=== PATIENT | female | born 1935 ===

== ENCOUNTER 2018-08-25 05:41 | Inpatient (IN) | payer MEDICARE, OTHER, SELFPAY ==
--- NOTE | 2018-08-25 | DI.RAD.S_ITS ---
PROCEDURE: XR CHEST 2V INDICATIONS: pneumonia TECHNIQUE: 2 views of the chest were acquired. COMPARISON: [facility], CR, XR CHEST 2VW, 07/16/2017, 12:11. FINDINGS: Surgical changes and devices: Multiple surgical clips are present over the left hemithorax. Lungs and pleura: Lung volumes are low. There are mild left basilar pulmonary radiopacities in atelectasis in the lower right lung. Mediastinum: Mediastinal contours are normal. Heart size is normal. Bones and chest wall: No suspicious bony abnormalities. Soft tissues appear unremarkable. IMPRESSION: Low lung volumes and probable left basilar atelectasis although aspiration/infection could also be considered in the differential. Short interval followup is recommended with resolution of the patient's symptoms to ensure there is no underlying pulmonary pathology. Dictated by: Rae Leger M.D. on 08/25/2018 at 10:59 Approved by: Rae Leger M.D. on 08/25/2018 at 11:01
--- NOTE | 2018-08-25 | DI.RAD.S_ITS ---
PROCEDURE: XR ABDOMEN MIN 2V INDICATIONS: SMALL BOWEL OBSTRUCTION TECHNIQUE: 2 views of the abdomen were acquired. COMPARISON: None. FINDINGS: Surgical changes and devices: Multiple surgical clips are present throughout the pelvis. Bowel: There are multiple differential air-fluid levels on the upright view. Dilated gas-filled loops of small bowel and nondilated gas-filled loops of colon are visualized at the pelvis. Soft tissues: No masses; visualized solid organ contours appear normal in size. No suspicious abdominal calcifications. Bones: No suspicious bony abnormalities. IMPRESSION: 1. Dilated, gas-filled small bowel and nondilated gas-filled colon suggesting a partial small bowel obstruction or early ileus. Dictated by: Rae Leger M.D. on 08/25/2018 at 11:01 Approved by: Rae Leger M.D. on 08/25/2018 at 11:02
--- NOTE | 2018-08-25 | DI.CT.S_ITS ---
PROCEDURE: CT ABDOMEN PELVIS W CON INDICATIONS: r/o bowel obstruction TECHNIQUE: After the administration of oral and intravenous contrast, 5 mm thick sections acquired from the diaphragms to the symphysis. 5 mm thick coronal and sagittal reformats were performed. For radiation dose reduction, the following was used: automated exposure control, adjustment of mA and/or kV according to patient size. COMPARISON: None. FINDINGS: Image quality: Excellent. ABDOMEN: Lung bases: Patchy consolidation in the lung bases bilaterally compatible atelectasis versus less likely pneumonia or aspiration. Heart size is normal. Atherosclerotic calcifications are noted in the visualized coronary vasculature. Solid organs: Liver is normal in size and enhancement. Gallbladder is within normal limits. Biliary system is non-dilated. Pancreas enhances normally. Spleen is normal in size and enhancement. No adrenal nodules. Kidneys are normal in size and enhancement. Patient is status post ileal conduit formation. There is bilateral pelvocaliectasis and ureterectasis related to the ileoconduit. No renal stones or renal masses identified. Peritoneum and bowel: Right lower quadrant paramedian hernia is noted which contains loops of small bowel. The herniated loops of small bowel have diffusely thickened wall and adjacent inflammatory changes highly suspicious for bowel strangulation. Dilated loops of small bowel are noted proximal to the herniated loops of small bowel compatible with small bowel obstruction. Loops of small bowel are dilated up to 3.2 cm. Transition zone is is at the right lower paramedian hernia. There is also a anthony-stromal hernia adjacent to the right lower quadrant ileal conduit which contains unremarkable appearing loops of small bowel and colon. Stomach and colon loops are normal in caliber and wall thickness. No free fluid or air. Nodes and vessels: No retroperitoneal or mesenteric adenopathy. Aorta and inferior vena cava are normal in caliber. Scattered atherosclerotic calcifications are noted in the abdominal and pelvic vasculature. Miscellaneous: Small supraumbilical ventral midline hernia is noted which contains an unremarkable appearing omental fat. PELVIS: Genitourinary: Bladder is surgically absent. Uterus is surgically absent. Miscellaneous: No inguinal hernias or adenopathy. Bones: No suspicious bony lesions. No vertebral body compression fractures. Spine degenerative disease and facet arthropathy noted. IMPRESSION: 1. Small bowel obstruction with transition point related to a right lower quadrant paramedian hernia which contains loops of small bowel. The herniated loops of small bowel demonstrate diffuse wall thickening and adjacent inflammatory changes highly concerning for bowel strangulation. 2. Status post right lower quadrant ileal conduit formation. There is a anthony-stromal hernia which contains unremarkable appearing loops of colon and small bowel. 3. Bilateral pelvocaliectasis and ureterectasis related to ileal conduit. 4. Status post cystectomy and hysterectomy. 5. Patchy consolidation in the lung bases which could represent atelectasis, aspiration or pneumonia. 6. Atherosclerosis including the visualized coronary vasculature. Dr. Kaia Diego of [facility] telephoned findings to [facility] charge nurse, Ashlyn, who will provide the results of the attending physician on 08/25/2018 at 1951 hrs. Dictated by: Gisselle Rogers MD, PhD on 08/25/2018 at 20:39 Approved by: Gisselle Rogers MD, PhD on 08/25/2018 at 20:52
[2018-08-25 06:11] VITALS: BMI 28.6
[2018-08-25 07:30] VITALS: BP 127/74; PULSE 107; RESP 20; TEMP 36.2; O2SAT 92
--- NOTE | 2018-08-25 07:40 | PC.NURSE ---
AM patient arrived at 0730 as a direct admit from [facility]. Report was never called from their team so I called [facility] and spoke to an ER wireless team member regarding pt. Patient arrived on stretcher and was slider to bed. Has a urostomy from previous bladder cancer. No temp. Denied pain. Only reports being tired.
--- NOTE | 2018-08-25 08:49 | CM.DANOTE ---
Discharge Planning/Care Management DCP: assessment: case received, EMR reviewed and met with pt. Introduced self and role. Pt is an 82 year old female who admitted to care of hospitalist team early this mornin. Dr. Martin will see her this morning. PCP: Dr. Elizabeth Zepeda: [facility] ( [facility]). Sees urologist: Dr. Moraima Mccall/[facility]. Payer: listed on face sheet as [employer] Medicare. Pt has all her insurance information and it appears from the cards she has that the [employer]etna is a [employer] supplement. [employer] is notified and has alerted [facility] to see pt today to get correct insurance info sorted out. Pt does live alone. Her sister Areli Mills is in [place]. She reports she has only her roman catholic family. She does say she is functionally independent in the community, uses no assistive device. She left without her trifocal glasses as it was an emergency. P: DCP team will follow as more is know to assist with any needs that may arise CM Discharge Assessment Start: 08/25/18 08:46 Freq: Status: Active Protocol: Document 08/25/18 08:47 ITV (Rec: 08/25/18 08:48 ITV [id number]) Discharge Planning Assessment History Provided By Patient Medical Record Has Patient been admitted in last 30 No days? Prior Living Arrangements House Household Members none Type of transporation used prior to Drives own vehicle admit Independent with ADL's Yes Is patient alert and oriented? Yes Whiteboard Updated in Patient Room with Yes name and ext. # of Final Dressing Cutter Review Status In Process Next Review Type Continued Stay Review
--- NOTE | 2018-08-25 10:32 | P.HP_ITS ---
History of Present Illness Date Patient Seen: 08/25/18 Time Patient Seen: 10:15 Chief complaint: Pneumonia, UTI Narrative: Patient is an 82 y/o female who was in her usual state of health until yesterday. She ate a sandwhich around 2pm. She noted her abdomen felt funny at 5pm. She describes diffuse constant abdominal pain associated with nausea, vomiting and diarrhea. The patient thought she had food poisoning. The pain did not radiate, was not sharp, did not change with deep inspiration or movement. Patient reported dry heaves and vomiting but no hemetemsis, melena, or bright red blood per rectum. She reports fever and chills. Her abdominal pain lasted until 2 am. She presented to the [facility] for evaluation. The patient had a Chest Xray the results of which are pending. She had lab studies significant for a procalcitonin of .50, normal lipase, amylase, elevated bun of 27.0 and creatinine of 1.57. Her glucose was elevated at 193 and LFT's were normal. The patient had urine with positive nitrite, large leukocytes, 11-20 WBC's and many bacteria. The patient has had a Total abdominal hysterectomy, complete cystectomy, and urostomy placement. Per report the patient was transferred to [facility] for treatment of pneumonia. Her abdominal pain, nausea, vomiting, and diarrhea have resolved. Patient History Medical History Bladder malignancy (Acute ~02/21/09) Cancer of left breast (Acute) Deep vein blood clot of left lower extremity (Acute) Deep vein blood clot of left lower extremity (Acute) Deep vein blood clot of right lower extremity (Acute ~11/23/94) Shingles (Acute ~11/23/03) Varicose veins of bilateral lower extremities with pain (Acute) History of hysterectomy (Chronic) Tonsillectomy planned (Chronic) Surgical History History of hysterectomy for indication other than malignancy (Acute) History of urostomy (Acute) S/P vascular bypass (Chronic ~11/23/89) Family & Social History Social History: household members none Prior Living Arrangements House Safety & Behavioral: Feels Safe in Current Yes Environment Been Physically Hurt or No Threatened By a Person Suicidal Ideation Description None Suicide Plan Description No Plan Tobacco & Substance use: Smoking Status Former smoker alcohol intake former Substance Use Type does not use Meds Home Medications Medication Instructions Recorded Confirmed Type atorvastatin 40 mg PO DAILY 08/25/18 History Allergies Allergy/AdvReac Type Severity Reaction Status Date / Time codeine Allergy Verified 08/25/18 08:52 doxycycline Allergy Verified 08/25/18 08:52 morphine Allergy Verified 08/25/18 08:52 Review of Systems Review of Systems All systems reviewed & are unremarkable except as noted in HPI and below Exam Vital Signs (past 8 hours): bp 118/50 P 113 RR 18, Sat 93% on Room aim T 37.2 Narrative Exam Narrative: Pleasant female in NAD HEENT: NC/AT, EOMI, oropharynx clear with dry mucus membranes Neck: Supple without adenopathy Lungs: Decreased breath sounds on left with occasional basilar crackles CV: RRR nl Sl S2 Abd: Soft/ non tender/ nondistended, no rebound, no boardlike rigidity, no palpable masses, urostomy in place with yellow urine Ext: No edema Neuro: Non focal Skin: no lesions Spine: no deformity Psych: patient is clear coherent without hallucinations Objective Labs Labs: Sodium 140, Potassium 3.9, Chloride 103, CO2 26, BUN 27 Creatinine 1.57, Glucose 193, Calcium 9.6, AST 11, ALT 15, Alk phos 130, albumin 3,5, T Bill 0,5 , amylase 63, lipase 134 Assessment & Plan (1) Tonsillectomy planned: Problem details: Non acute problem Current visit: No Status: Chronic (2) History of hysterectomy: Problem details: non acute problem Current visit: No Status: Chronic (3) S/P vascular bypass: Current visit: No Status: Chronic (4) Pneumonia: Problem details: Will recheck Chest Xray, continue antibiotics, check Procalcitonin Current visit: Yes Status: Acute (5) Acute renal failure: Problem details: Continue IV hydration Current visit: Yes Status: Acute (6) Nausea & vomiting: Problem details: Continue antiemetics, check KUB given history of multiple abdominal surgeries Current visit: Yes Status: Acute (7) History of bladder cancer: Problem details: urostomy in place Current visit: Yes Status: Acute (8) History of urostomy: Problem details: suspect chronic bacteria and not UTI Current visit: Yes Status: Acute Plan: Assessment/Plan Narrative: Follow up on testing above, recommendations pending above Patient is DNR Quality VTE Deep Vein Thrombosis/Pulmonary Embolism Present on Admission: No
[2018-08-25] MEDS: SODIUM CHLORIDE 0.9% 1,000 ML 100 ML IV (10:43)
[2018-08-25] MEDS: DOCUSATE 100 MG CAPSULE PO (10:54)
[2018-08-25 11:33] LABS: Add Manual Diff / Slide Review NO; Basophils Percent Auto 0.2 % (0-2); Eosinophils Percent Auto 1.4 % (2-4); Hematocrit 45.2 % (36-46); Hemoglobin 14.9 g/dL (12.0-16.0); Mean Corpuscular HGB Conc 32.8 % (30-36); Mean Corpuscular Volume 91.2 fL (80-100); Monocytes Percent Auto 7.9 % (3-14); Neutrophils Absolute Auto 7200 /uL (3000-5900); Neutrophils Percent Auto 79.5 % (50-75); Platelet Count 211 X10^3/uL (150-400); Red Blood Cell Count 4.96 X10^6/uL (4.0-5.2); Red Cell Distribution Width 14.9 % (11.6-14.8)
[2018-08-25] MEDS: ENOXAPARIN 40 MG/0.4 ML SYRINGE SUBCUT (12:02)
[2018-08-25] MEDS: CEFTRIAXONE 1 GM/50 ML FROZ.PIGGY IV (12:03)
[2018-08-25 12:31] VITALS: BP 144/76; PULSE 95; RESP 16; TEMP 37.1
[2018-08-25 12:33] LABS: Procalcitonin < 0.05 ng/mL (<0.5)
[2018-08-25] MEDS: AZITHROMYCIN 500 MG in DEXTROSE 5% IN WATER 250 ML IV (13:31)
[2018-08-25 13:36] LABS: Alanine Aminotransferase 21 IU/L (9-52); Albumin 3.4 g/dL (3.5-5.0); Albumin Globulin Ratio 1.1 (1.0-2.8); Alkaline Phosphatase 98 U/L (38-126); Aspartate Aminotransferase 14 IU/L (14-36); BUN Creatinine Ratio 16.9 (6-22); Bilirubin Total 0.4 mg/dL (0.2-1.3); Blood Urea Nitrogen 22 mg/dL (7-17); Carbon Dioxide 26 mmol/L (22-32); Chloride 109 mmol/L (98-107); Estimated Glomerular Filt Rate 39.4 mL/min (>60); Glucose 111 mg/dL (80-110); HEMOLYSIS 16 (0-50); Potassium 5.2 mmol/L (3.4-5.1); Sodium 145 mmol/L (137-145); Total Protein 6.4 g/dL (6.3-8.2)
[2018-08-25 15:44] VITALS: BP 132/62; PULSE 87; RESP 18; TEMP 36.3; O2SAT 96
[2018-08-25 16:35] VITALS: O2SAT 95
[2018-08-25 19:37] VITALS: BP 149/88; PULSE 70; RESP 18; TEMP 36.5; O2SAT 95
--- NOTE | 2018-08-25 20:50 | PC.NURSE ---
TALKED WITH ABOUT CT RESULTS, NPO AFTER 2400,AND HE WOULD BE IN TO SEE PATIENT IN AM
[2018-08-26] VITALS (22 sets, daily range): BP systolic 70–187; BP diastolic 37–95; PULSE 89–108; RESP 10–22; TEMP 36.1–36.9; O2SAT 88–97; BMI 29.2
[2018-08-26 06:18] LABS: Add Manual Diff / Slide Review NO; Basophils Percent Auto 0.5 % (0-2); Eosinophils Percent Auto 6.9 % (2-4); Hematocrit 44.4 % (36-46); Hemoglobin 14.7 g/dL (12.0-16.0); Lymphocytes Percent Auto 17.5 % (25-40); Mean Corpuscular HGB Conc 33.2 % (30-36); Mean Corpuscular Volume 90.2 fL (80-100); Monocytes Percent Auto 10.6 % (3-14); Neutrophils Absolute Auto 3600 /uL (3000-5900); Neutrophils Percent Auto 64.5 % (50-75); Platelet Count 200 X10^3/uL (150-400); Red Blood Cell Count 4.92 X10^6/uL (4.0-5.2); Red Cell Distribution Width 14.6 % (11.6-14.8); White Blood Cell Count 5.6 X10^3/uL (4.5-11.0)
[2018-08-26 06:32] LABS: BUN Creatinine Ratio 12.3 (6-22); Blood Urea Nitrogen 16 mg/dL (7-17); Calcium 8.7 mg/dL (8.4-10.2); Carbon Dioxide 23 mmol/L (22-32); Chloride 113 mmol/L (98-107); Estimated Glomerular Filt Rate 39.4 mL/min (>60); Glucose 103 mg/dL (80-110); HEMOLYSIS 22 (0-50); Potassium 4.2 mmol/L (3.4-5.1); Sodium 145 mmol/L (137-145)
--- NOTE | 2018-08-26 08:35 | PC.NURSE ---
Addendum entered by Luisa Bearden R.N. 08/26/18 15:37: Reviewed pre po checklist with SN Abad/Stephen Original Note: Addendum entered by Luisa Bearden R.N. 08/26/18 13:35: Pt is Spo2 92 on RA, dim to bases. Given I.S. and instructed to use. Original Note: Addendum entered by Luisa Bearden R.N. 08/26/18 10:49: Assisted Pt to BR to clean up, smear of BM. Urostomy draining clear urine. Oral care and assist to wash face. Original Note: Am shift Pt reports improved ABD pain at hernia sites, previous surgery site r/t urostomy/bladder cancer. Palpable, painful nodules, Pt has been told this is bowel. Abd less distended per Pt, flatus + no BM, 0815 Dr Chacko into see Pt, will have surgery later today, consent obtained. Pt to remain NPO.
[2018-08-26] MEDS: ENOXAPARIN 40 MG/0.4 ML SYRINGE SUBCUT (10:46)
--- NOTE | 2018-08-26 12:29 | PC.NURSE ---
Pt had questions about her upcoming surgical procedure, specifically what a hernia was. I provided her with verbal teaching as well as printed information.
[2018-08-26] MEDS: CEFTRIAXONE 2 GM/50 ML FROZ.PIGGY IV (13:34)
--- NOTE | 2018-08-26 14:03 | CM.DPC ---
DCP Cont: Met with patient in her room, pleasant, alert and oriented. Lives alone, has friends at her gnosticism, and a furniture installer who is supportive as well. Stated that she has a sister named Areli, who lives in [place], and stated that it is ok to give her information regarding her condition. Discussed home plan, patient stated that she would not object to [facility] if needed. Also stated that she has friends that can transport her home, if this is the plan. P: Patient is to have surgery today. DCP will continue to assess. Liz Holguin RN/Tile Setter
--- NOTE | 2018-08-26 15:57 | PM.PN.1 ---
Subjective Date Patient Seen: 08/26/18 Interval history: Pleasant female resting comfortably in no acute distress. Patient is still passing flatus. She is awaiting definitive surgical treatment Exam Vital Signs (past 8 hours): - 08/26/18 09:11 08/26/18 10:48 08/26/18 12:51 Temperature 97.8 F 98 F Pulse Rate 92 H 90 Respiratory Rate 18 18 Blood Pressure 148/85 H 140/80 Pulse Oximetry 88 L 92 92 08/26/18 15:35 Temperature 98.0 F Pulse Rate 92 H Respiratory Rate 18 Blood Pressure 157/76 H Pulse Oximetry 95 Oxygen Delivery Method Room Air Narrative Exam Narrative: Lungs: clear to auscultation CV: RRR nl Sl S2 3/6 SEYMOUR Abd: soft/ non tender/ mildly distended, urostomy with clear yellow urine Ext: no edema Objective Labs Result Diagrams: 08/26/18 05:40 08/26/18 05:40 Labs: Laboratory Results - last 24 hr Small bowel obstruction with transition point related to a right lower quadrant paramedian hernia which contains loops of small bowel. The herniated loops of small bowel demonstrate diffuse wall thickening and adjacent inflammatory changes highly concerning for bowel strangulation. 2. Status post right lower quadrant ileal conduit formation. There is a anthnoy-stromal hernia which contains unremarkable appearing loops of colon and small bowel. 3. Bilateral pelvocaliectasis and ureterectasis related to ileal conduit. 4. Status post cystectomy and hysterectomy. 5. Patchy consolidation in the lung bases which could represent atelectasis, aspiration or pneumonia. 6. Atherosclerosis including the visualized coronary vasculature. 08/26/18 08/26/18 05:40 05:40 WBC 5.6 RBC 4.92 Hgb 14.7 Hct 44.4 MCV 90.2 MCH 30.0 MCHC 33.2 RDW 14.6 Plt Count 200 Neut % (Auto) 64.5 Lymph % (Auto) 17.5 L [place] % (Auto) 10.6 Eos % (Auto) 6.9 H Baso % (Auto) 0.5 Neut # (Auto) 3600 Sodium 145 Potassium 4.2 Chloride 113 H Carbon Dioxide 23 BUN 16 Creatinine 1.30 H Estimated GFR 39.4 L BUN/Creatinine Ratio 12.3 Glucose 103 Calcium 8.7 Assessment & Plan (1) Small bowel obstruction with strangulation or infarction: Problem details: Patient will be going to the Operating room today for definitive surgical repair Current visit: Yes Status: Acute (2) Acute renal failure: Problem details: Continue IV hydration Current visit: Yes Status: Acute (3) History of urostomy: Problem details: suspect chronic bacteria and not UTI Current visit: Yes Status: Acute Quality VTE Deep Vein Thrombosis/Pulmonary Embolism Present on Admission: No
[2018-08-26] MEDS: LACTATED RINGERS 1,000 ML 42 ML IV (17:15)
[2018-08-26] MEDS: HYDROMORPHONE 2 MG INJ 0.5 MG IV ×4 (19:07→19:31)
--- NOTE | 2018-08-26 20:04 | SUR.PHASEI ---
pt medicated with dilaudid, iv restarted to r hand with 20 g catheter by augusta galicia. pt pain started at 08/02 down to 03/02. dressing remained c/d/i. pt brought back to room via bed on and left in stable condition.
--- NOTE | 2018-08-26 20:11 | PC.NURSE ---
Patient back from pacu @ 1950. Awake and alert. Bulky Drsg to mid abd cdi. Pt states pain is tolerable at 4/10. Ivf started, Ice placed back onto abd by boiler/chiller technician. Pt tolerating ice chips well.
[2018-08-27] VITALS (10 sets, daily range): BP systolic 98–189; BP diastolic 51–91; PULSE 83–106; RESP 18–20; TEMP 36.4–37.7; O2SAT 87–98
--- NOTE | 2018-08-27 | DI.RAD.S_ITS ---
PROCEDURE: XR CHEST 2V INDICATIONS: Evaluate for pneumonia. TECHNIQUE: 2 views of the chest were acquired. COMPARISON: [facility], CT, CT ABDOMEN PELVIS W CON, 08/25/2018, 16:51. [facility], CR, XR ABDOMEN MIN 2V, 08/25/2018, 9:53. [facility], CR, XR CHEST 2V, 08/25/2018, 9:53. FINDINGS: Surgical changes and devices: Surgical clips project over the left chest, unchanged from prior exam. Lungs and pleura: No pleural effusions or pneumothorax. There are right greater than left bibasilar pulmonary opacities. Mediastinum: Mediastinal contours are normal. Heart size is normal. Bones and chest wall: Osseous structures are unchanged from prior exam. There is increased lucency of the right upper quadrant of the abdomen overlying the hepatic silhouette and free intraperitoneal air in the left upper quadrant of the abdomen. IMPRESSION: #1. Right greater than left bibasilar pulmonary opacities most consistent with atelectasis, less likely pneumonia. #2. Free intraperitoneal air, compatible with recent history of abdominal surgery. Findings discussed with the patient's nurse Aristides Sevilla at 4:30 pm on 08/27/[address] Price. The patient's nurse confirmed that the patient had abdominal surgery one day prior on 08/26/2018. Dictated by: Abdulkadir Price M.D. on 08/27/2018 at 16:29 Approved by: Abdulkadir Price M.D. on 08/27/2018 at 16:41
[2018-08-27] MEDS: SODIUM CHLORIDE 0.9% 1,000 ML 100 ML IV (00:05)
[2018-08-27 05:55] LABS: Appearance Urine UA CLEAR; Bilirubin Urine UA NEGATIVE (NEGATIVE); Color Urine UA YELLOW; Glucose Urine UA NEGATIVE (Normal); Ketones Urine UA NEGATIVE (NEGATIVE); Leukocyte Esterase Urine UA 2+ (NEGATIVE); Nitrite Urine UA Negative (Negative); Occult Blood Urine UA TRACE-LYSED (Negative); Protein Urine UA NEGATIVE (Negative); Urobilinogen Urine UA 0.2 E.U./dL (0.2)
--- NOTE | 2018-08-27 06:02 | OP_ITS ---
DATE OF SERVICE: 08/26/2018 PREOP DIAGNOSIS: Incarcerated ventral hernia with partial small bowel obstruction. POSTOP DIAGNOSIS: Incarcerated ventral hernia with partial small bowel obstruction. PROCEDURE: Repair of a ventral hernia with a C-QUR mesh. SURGEON: Presley Pruett MD DESCRIPTION OF PROCEDURE: The patient was given a general endotracheal anesthetic and prepped and draped in a sterile fashion with exposure of the low abdomen. She had a prior Latisha ileal conduit urostomy, the urostomy exiting from the right side of her abdomen, so we covered her after prepping. We covered her entire abdomen with Ioban to just cover the urostomy appliance, etc. She was properly identified during surgical pause. Low midline incision was de over palpable ventral hernia, which contained copious amount of small bowel, which was matted with interloop adhesions. This required an extensive enterolysis of a fair amount of small bowel that was actually trapped in the hernia. There was a large subcutaneous pouch, about the size of a grapefruit, but the hernia defect in the fascia was only about 2 cm in diameter, so I enlarged that defect in the fascia, completely freed the small bowel from its sac adhesions and interloop adhesions, and then reduced the healthy-appearing bowel into the peritoneal cavity. Once this was done then I could completely circumferentially visualize the fascial defect and I applied a strapped C-Qur double surfaced mesh with the Lattimore-3 oil on the inside, the visceral side of the mesh then, of course, facing the viscera. Then, this was sutured into the wound with the straps using #1 Monocryl, closing the fascia around the mesh and then incorporating the straps of the mesh into the wound closure, the fascial closure, and then the redundant straps were excised. The hernia repair thus was tension-free. The subcutaneous was closed with 2-0 Vicryl and the skin stapled. Sterile dressing was applied. She tolerated this procedure very well. Ricci Dayana - /rosalio/serg doc#: [id number]/job#: [id number] dd: 08/26/2018 18:51:00 dt: 08/27/2018 05:27:00 DICTATING MD/COPIES TO: Presley Pruett MD COPIES MNE: AURELIO
[2018-08-27 06:16] LABS: RBC Urine 0-1/HPF (0-5/HPF); WBC Urine 1-5/HPF (0-5/HPF)
[2018-08-27 06:17] LABS: Bacteria Urine Occasional (0-1); Culture Indicated Urine Specimen Cultured
[2018-08-27] MEDS: LORazepam 2 MG/ML SYRINGE 0.25 MG IV (08:16)
[2018-08-27] MEDS: ACETAMINOPHEN 325 MG TABLET 650 MG PO ×2 (08:18→14:24)
[2018-08-27] MEDS: ENOXAPARIN 30 MG/0.3 ML SYRINGE SUBCUT (09:57)
[2018-08-27] MEDS: DOCUSATE 100 MG CAPSULE PO ×2 (09:57→20:09)
[2018-08-27] MEDS: OXYCODONE/ACETAMINOPHEN 5/325 TABLET 1 TAB PO (11:12)
--- NOTE | 2018-08-27 13:16 | PC.NURSE ---
Dayana was able to get up and walk around the unit perimeter in halls this AM with SBA. She is now off O2 with RA sat of 98%. She is taking Percocet for pain. Belching, but no flatus yet, and has little appetite for solid food. VSS. Abd. drsg. clean/dry/intact. Urostomy bag to johnson drain bag with adq. UOP.
--- NOTE | 2018-08-27 14:06 | PN_ITS ---
DATE OF SERVICE: 08/27/2018 SUBJECTIVE: Patient's about 12-16 hours postoperative repair of an incarcerated ventral hernia with small bowel entrapment and partial small bowel obstruction. Subjectively, the patient, in her words, says, I feel awesome. Subjectively, she's also tolerating a full liquid diet with no nausea, vomiting. OBJECTIVE: Temperature is 99. Abdomen is soft. Her dressing is dry and intact. I did not remove it. Her urinary output is excellent. Clear, straw-colored urine. IMPRESSION: She is recovering nicely from release of a partial small bowel obstruction from an incarcerated ventral hernia. Repair appears to be intact. She has minimal abdominal discomfort. PLAN: Today, we will stop her IV fluids, advance her to a mechanical soft diet, and have geophysical support specialist ambulating her. She's doing quite well, and we'll continue supportive care and careful observation. RicciDayana - Yari/maddy doc#: [id number]/job#: [id number] dd: 08/27/2018 10:03:00 dt: 08/27/2018 14:00:00 DICTATING /COPIES TO: Presley Pruett MD COPIES MNE: AURELIO
--- NOTE | 2018-08-27 15:32 | PC.NURSE ---
Dayana's saline locks kathe. hands were leaking and non-patent. New order from Dr. Pruett obtained to d/c IVs and just leave out.
--- NOTE | 2018-08-27 15:42 | PM.PN.1 ---
Subjective Date Patient Seen: 08/27/18 Time Patient Seen: 15:42 Interval history: History of present illness Follow-up on patient with an incarcerated ventral hernia involving small bowel Patient had surgical procedure on August 26. Diet is being advanced as directed by surgeon Patient noted with a urinary tract infection and suspected pneumonia Review of system No chest pain or shortness of breath at the present time Patient is only pain discomfort is the region of the incision regarding her surgical procedure yesterday Exam Vital Signs (past 8 hours): - 08/27/18 07:56 08/27/18 07:57 08/27/18 08:05 Temperature 99.3 F Pulse Rate 93 H Respiratory Rate 18 Blood Pressure 144/75 H Pulse Oximetry 87 L 92 95 08/27/18 10:32 08/27/18 13:12 Temperature 98.4 F Pulse Rate 106 H 97 H Respiratory Rate 18 18 Blood Pressure 134/68 Pulse Oximetry 96 97 Fraction of Inspired Oxygen 21 Oxygen Delivery Method Nasal Cannula Oxygen Flow Rate 0 Narrative Exam Narrative: General appearance patient is awake and alert no apparent distress sitting out of bed to the chair Psychiatric well oriented to time place and person mood is pleasant and surprising considering the circumstances. Affect is appropriate Respiratory fairly clear to auscultation with good airflow no wheezes no crackles Cardiovascular regular rate rhythm no murmurs, +3 pulses to extremities GI decreased bowel sounds though still present tenderness noted at the incision line and understandably so Neurologic no focal neurologic changes cranial nerves 2-12 grossly intact no tremor noted Musculoskeletal plus 5/5 motor no clubbing is noted range of motion appears normal Objective Labs Result Diagrams: 08/26/18 05:40 08/26/18 05:40 Labs: Laboratory Results - last 24 hr 08/27/18 05:45 Urine Color Yellow Urine Appearance Clear Urine pH 7.0 Ur Specific [place] 1.010 Urine Protein Negative Urine Glucose (UA) Negative Urine Ketones Negative Urine Occult Blood Trace-lysed Urine Nitrate Negative Urine Bilirubin Negative Urine Urobilinogen 0.2 Ur Leukocyte Esterase 2+ H Urine RBC 0-1/hpf Urine WBC 1-5/hpf Urine Bacteria Occasional (0-1) Ur Culture Indicated? Specimen cultured Micro UA Comment Not Reportable Assessment & Plan Plan: Assessment/Plan Narrative: Incarcerated ventral hernia involving small bowel Patient underwent surgery by general surgeon on August 26 Today patient is postop day 1. Discomfort noted at the incision line but pain appears a tolerable Diet being advanced per surgeon's instruction Acute renal failure: This may be in part due to dehydration IV fluids being provided No significant change in the serum creatinine as yet History of bladder cancer with urostomy Continue management of the urostomy Suspected pneumonia repeat the serum procalcitonin today Two-view chest x-ray as tolerated requested to be done today Time Spent With Patient Time with patient: 25 - 35 minutes (25 min) Quality VTE Deep Vein Thrombosis/Pulmonary Embolism Present on Admission: No
--- NOTE | 2018-08-27 16:10 | PT.IIE ---
Current Diagnoses Pneumonia, unspecified organism (08/25/18) Unspecified intestinal obstruction, unspecified as to partial versus complete obstruction (08/25/18) Acute kidney failure, unspecified (08/25/18) Nausea with vomiting, unspecified (08/25/18) Personal history of malignant neoplasm of bladder (08/25/18) Presence of other vascular implants and grafts (08/25/18) Other specified postprocedural states (08/25/18) Surgery Performed Operation Date: 08/26/18 17:30 Actual Procedures p Hernia Repair Ventral - Presley Pruett MD Surgical History (Last Updated 08/25/18 @ 10:21 by Shahida Martin MD) History of hysterectomy for indication other than malignancy (Acute) History of urostomy (Acute) S/P vascular bypass (Chronic ~11/23/89) Medical History (Last Reviewed 08/25/18 @ 10:20 by Shahida Martin MD) Bladder malignancy (Acute ~02/21/09) Cancer of left breast (Acute) Deep vein blood clot of left lower extremity (Acute) Deep vein blood clot of left lower extremity (Acute) Deep vein blood clot of right lower extremity (Acute ~11/23/94) Shingles (Acute ~11/23/03) Varicose veins of bilateral lower extremities with pain (Acute) History of hysterectomy (Chronic) Tonsillectomy planned (Chronic) Physical Therapy Inpatient Evaluation/Re-Eval M1 PT/OT-IP Prior Functional Status Start: 08/27/18 16:54 Freq: NEEDED Status: Active Protocol: Document 08/27/18 16:10 AB (Rec: 08/27/18 17:16 AB [id number]) Medical Review Prior Functional Status Medical History Reviewed Yes Communication able to make needs known Mobility and Gait pt stated that she is independent with all mobilities and ambulation without AD Social History Household Members none Living Arrangements House Number of Floors (Floors) One Floor Number of Stairs To Enter/Railing? has 3 steps to enter with bilateral rails Home Environment Standard Height Toilet Walk in Shower Home Equipment Shower Seat without Backrest Employment Status Retired Additional Social History Comment pt stated that she has a high millie size bed and has a 3 tier step stool/ladder that she uses to get into the bed and also uses that same step to pull on to assist her with bed mobility. pt stated that she has friends /neighbors that she can call for assistance. M2 PT-IP Current Condition Start: 08/27/18 16:54 Freq: NEEDED Status: Active Protocol: Document 08/27/18 16:10 AB (Rec: 08/27/18 17:16 AB [id number]) Physical Therapy Current Condition Current Condition Evaluation Date 08/27/18 Treatment Diagnosis incarcerated ventral hernia w/ partial SBO s/p repair; generalized weakness Onset Date 08/25/18 Precautions Abdominal Surgery Precautions Log Roll Lifting Restrictions Gait Belt above Incisional Area M3 PT-IP Subjective Start: 08/27/18 16:54 Freq: NEEDED Status: Active Protocol: Document 08/27/18 16:10 AB (Rec: 08/27/18 17:16 AB [id number]) Subjective Physical Therapy Visit Type Type Initial Evaluation Visit Start Time 16:10 Visit Stop Time 16:40 Total Visit Minutes 30 Number of DEVELOPMENT TECHNICAL LEAD Visits 0 Physical Therapy Visit Comments Patient Comments i walk fine Patient Goals to go home tomorrow Therapy Pain Assessment Pain When Pain Assessed At Rest Pain Present Pain Present Pain Reported Location Abdomen Intensity 4 Scale Used Numeric (1 - 10) M4 PT-IP Mobility and Gait Start: 08/27/18 16:54 Freq: NEEDED Status: Active Protocol: Document 08/27/18 16:10 AB (Rec: 08/27/18 17:16 AB [id number]) PT-Bed Mobility Assessment Supine to Sit Supine to Sit Standby Assistance Bedrails Sit to Supine Sit to Supine Standby Assistance Bedrails PT-Transfer Assessment Sit to and From Stand Sit to and from Stand Standby Assistance Equipment Transfer Assistive Device Gait Belt Front Wheeled Walker Orthotic/Prosthetic Devices or Brace: No Comments Mobility Comments pt educated on log roll bed mobility. pt used bed rail to assist with bed mobility and stated that she uses her step ladder/stool to assist her with bed mobility. Gait Assessment Gait Gait Assistance Required: Standby Assistance Distance (Feet) 40 Able to Maintain Weight Bearing Status Yes During Gait Assistive Devices Assistive Device Gait Belt Front Wheeled Walker Orthotic/Prosthetic Devices or Brace: No Gait Deviations General Gait Pattern Antalgic Decreased Stride Length Decreased Feet Clearance Factors Limiting Gait Function Factors Limiting Gait Function Decreased Activity Tolerance Decreased Strength Pain Comments Gait Comments assessed pt's ambulation using FWW and completed ~ 30 ft SBA . assessed ambulation without AD and pt completed with SBA ~ 40 ft. PT-Balance Assessment Sitting Balance and Reactions Static Sitting Balance Ability Good Dynamic Sitting Balance Ability Good Standing Balance and Reactions Static Standing Balance Ability Good Dynamic Standing Balance Ability Fair Device Used without AD M5 PT-IP Objective Assessments Start: 08/27/18 16:54 Freq: NEEDED Status: Active Protocol: Document 08/27/18 16:10 AB (Rec: 08/27/18 17:16 AB [id number]) Orientation Orientation/Cognition Level of Alertness Alert Orientation Name Age Place Situation Safety Awareness Decreased Safety Awareness Gross Range of Motion Lower Extremity ROM Assessment Within Functional Limits Strength Lower Extremity Strength Assessment Within Functional Limits Sensation Assessment Sensation Gross Sensation WNL Muscle Tone Muscle Tone WNL Yes M6 PT-IP Treatment Start: 08/27/18 16:54 Freq: NEEDED Status: Active Protocol: Document 08/27/18 16:10 AB (Rec: 08/27/18 17:16 AB [id number]) Physical Therapy Treatment Education Education Provided Precautions Safety M7 PT-IP Assessment and Plan Start: 08/27/18 16:54 Freq: NEEDED Status: Active Protocol: Document 08/27/18 16:10 AB (Rec: 08/27/18 17:16 AB [id number]) PT Summary Assessment and Plan Potential Rehabilitation Potential Good Status of Condition at Evaluation Stable Summary Impairments Pain Strength Balance Bed Mobility Transfers Gait Activity Tolerance Assessment Summary pt requiring SBA with mobility and will likely progress during hospital stay. stair climbing training will be conducted prior to d/c. Goals Bed Mobility Goal Independent Transfer Goal Independent Gait Goal Independent Gait Distance 150 Other Goals up/down 3 steps with bilateral rails supervision up/down 1 step stool supervision Days to Meet Goals 3 Treatment Plan Physical Therapy Treatment Plan Bed Mobility Training Transfer Training Gait Training Therapeutic Exercise Balance Retraining Post Op Education Discharge Planning Neuromuscular Re-ed Coordination Retraining Manual Therapy Recommendations To Nursing Amount of Assist Needed Standby Assistance Discharge Recommendations PT Discharge Recommendations Home with Assistance
[2018-08-27 17:10] LABS: Procalcitonin 0.09 ng/mL (<0.5)
[2018-08-28 00:40] VITALS: BP 153/76; PULSE 99; RESP 18; TEMP 36.8; O2SAT 95
[2018-08-28 05:30] VITALS: BP 109/58; PULSE 89; RESP 18; TEMP 36.9; O2SAT 92
[2018-08-28 05:50] LABS: Add Manual Diff / Slide Review NO; Eosinophils Percent Auto 3.3 % (2-4); Hematocrit 39.7 % (36-46); Hemoglobin 13.1 g/dL (12.0-16.0); Lymphocytes Percent Auto 10.2 % (25-40); Mean Corpuscular HGB Conc 32.9 % (30-36); Mean Corpuscular Hemoglobin 29.9 PG (26-34); Mean Corpuscular Volume 90.7 fL (80-100); Monocytes Percent Auto 14.9 % (3-14); Neutrophils Absolute Auto 5400 /uL (3000-5900); Neutrophils Percent Auto 70.6 % (50-75); Platelet Count 195 X10^3/uL (150-400); Red Blood Cell Count 4.37 X10^6/uL (4.0-5.2); Red Cell Distribution Width 14.4 % (11.6-14.8); White Blood Cell Count 7.6 X10^3/uL (4.5-11.0)
[2018-08-28 06:05] LABS: BUN Creatinine Ratio 10.8 (6-22); Blood Urea Nitrogen 13 mg/dL (7-17); Calcium 8.6 mg/dL (8.4-10.2); Carbon Dioxide 26 mmol/L (22-32); Chloride 105 mmol/L (98-107); Estimated Glomerular Filt Rate 43.2 mL/min (>60); Glucose 111 mg/dL (80-110); HEMOLYSIS < 15 (0-50); Potassium 3.6 mmol/L (3.4-5.1); Sodium 139 mmol/L (137-145)
[2018-08-28 06:18] LABS: C-Reactive Protein Quant 13.9 mg/dL (<1.0)
[2018-08-28 07:40] VITALS: BP 134/62; PULSE 92; RESP 16; TEMP 36.7; O2SAT 94
[2018-08-28] MEDS: ENOXAPARIN 30 MG/0.3 ML SYRINGE SUBCUT (09:03)
[2018-08-28] MEDS: DOCUSATE 100 MG CAPSULE PO (09:03)
--- NOTE | 2018-08-28 09:23 | PT.IPTN ---
Current Diagnoses Pneumonia, unspecified organism (08/25/18) Unspecified intestinal obstruction, unspecified as to partial versus complete obstruction (08/25/18) Acute kidney failure, unspecified (08/25/18) Nausea with vomiting, unspecified (08/25/18) Personal history of malignant neoplasm of bladder (08/25/18) Presence of other vascular implants and grafts (08/25/18) Other specified postprocedural states (08/25/18) Surgery Performed Operation Date: 08/26/18 17:30 Actual Procedures p Hernia Repair Ventral - Presley Pruett MD Physical Therapy Treatment Note M2 PT-IP Current Condition Start: 08/27/18 16:54 Freq: NEEDED Status: Active Protocol: Document 08/27/18 16:10 AB (Rec: 08/27/18 17:16 AB [id number]) Physical Therapy Current Condition Current Condition Evaluation Date 08/27/18 Treatment Diagnosis incarcerated ventral hernia w/ partial SBO s/p repair; generalized weakness Onset Date 08/25/18 Precautions Abdominal Surgery Precautions Log Roll Lifting Restrictions Gait Belt above Incisional Area M3 PT-IP Subjective Start: 08/27/18 16:54 Freq: NEEDED Status: Active Protocol: Document 08/28/18 09:23 AB (Rec: 08/28/18 12:28 AB [id number]) Subjective Physical Therapy Visit Type Type Treatment Note Visit Start Time 09:23 Visit Stop Time 09:38 Total Visit Minutes 15 Number of [facility] SPECIALIST Visits 0 Physical Therapy Visit Comments Patient Comments pt agreeable to do PT Patient Goals to go home Therapy Pain Assessment Pain When Pain Assessed At Rest Pain Present Pain Present Pain Reported Location Abdomen Intensity 2 Scale Used Numeric (1 - 10) Pain Management Techniques Timing of Activity with Medications M4 PT-IP Mobility and Gait Start: 08/27/18 16:54 Freq: NEEDED Status: Active Protocol: Document 08/28/18 09:23 AB (Rec: 08/28/18 12:28 AB [id number]) PT-Transfer Assessment Sit to and From Stand Sit to and from Stand Standby Assistance Equipment Transfer Assistive Device Gait Belt Orthotic/Prosthetic Devices or Brace: No Gait Assessment Gait Gait Assistance Required: Standby Assistance Distance (Feet) 350 Able to Maintain Weight Bearing Status Yes During Gait Assistive Devices Assistive Device Gait Belt Gait Deviations General Gait Pattern Antalgic Decreased Stride Length Decreased Feet Clearance Lateral Trunk Lean Factors Limiting Gait Function Factors Limiting Gait Function Decreased Activity Tolerance Decreased Strength Pain Poor Balance Comments Gait Comments pt ambulated without AD SBA but presents with antalgic gait, unable to walk a straight path but has no LOB and stable on her feet. pt has lateral trunk lean towards the R and stated that RLE is shorter than L. Stair Climbing Assessment Evaluation Level of Assist On Stairs Standby Assistance Devices Stair Climbing Assistive Devices Left Railing Right Railing Technique/Endurance Stair Climbing Direction Ascend and Descend Stair Climbing Technique Step to Step Number of Steps Climbed 3 Query Text: Stair Climbing Set # Repetitions (reps) 1 Comments Stair Climbing Comments pt also completed up/down step stool with handle in front to simulate up/down step to get into her bed. pt completed with SBA. M5 PT-IP Objective Assessments Start: 08/27/18 16:54 Freq: NEEDED Status: Active Protocol: Document 08/27/18 16:10 AB (Rec: 08/27/18 17:16 AB [id number]) Orientation Orientation/Cognition Level of Alertness Alert Orientation Name Age Place Situation Safety Awareness Decreased Safety Awareness Gross Range of Motion Lower Extremity ROM Assessment Within Functional Limits Strength Lower Extremity Strength Assessment Within Functional Limits Sensation Assessment Sensation Gross Sensation WNL Muscle Tone Muscle Tone WNL Yes M6 PT-IP Treatment Start: 08/27/18 16:54 Freq: NEEDED Status: Active Protocol: Document 08/28/18 09:23 AB (Rec: 08/28/18 12:28 AB [id number]) Physical Therapy Treatment Education Education Provided Precautions Safety M7 PT-IP Assessment and Plan Start: 08/27/18 16:54 Freq: NEEDED Status: Active Protocol: Document 08/28/18 09:23 AB (Rec: 08/28/18 12:28 AB [id number]) PT Summary Assessment and Plan Potential Rehabilitation Potential Good Summary Impairments Pain ROM Strength Balance Bed Mobility Transfers Gait Activity Tolerance Progress Towards Goals Progressing Toward Goals Assessment Summary pt progressing well with mobility and requiring SBA. pt may go home when medically stable and stated that she has neighbors and friends that can help her when needed. Goals Bed Mobility Goal Independent Transfer Goal Independent Gait Goal Independent Gait Distance >300 Other Goals up/down 3 steps with bilateral rails supervision up/down 1 step stool supervision Days to Meet Goals 3 Frequency of Treatment Frequency Of Treatment Once a Day Treatment Plan Physical Therapy Treatment Plan Bed Mobility Training Transfer Training Gait Training Therapeutic Exercise Balance Retraining Post Op Education Discharge Planning Neuromuscular Re-ed Coordination Retraining Manual Therapy Recommendations To Nursing Amount of Assist Needed Standby Assistance Discharge Recommendations PT Discharge Recommendations Home with Assistance
[2018-08-28] MEDS: ACETAMINOPHEN 325 MG TABLET 650 MG PO (09:56)
[2018-08-28] MEDS: POLYETHYLENE GLYCOL 3350 17 GM POWD.PACK PO (10:48)
--- NOTE | 2018-08-28 11:05 | CM.DPC ---
Addendum entered by Lucy Arias LPN 08/28/18 15:31: Dr. Villareal saw pt this afternoon 1430 after pt passed some stool. CINDY Bliss reported to this CM that the stools were 2 somewhat hard balls and that when she place the suppository it appeared that their was quite a bit of stool in the rectal vault. Dr. Villareal wondered if pt was ready for d/c today. Discussed above information and he decided at that point to keep pt until tomorrow to make sure bowels were moving well before she went home to [place]. Checked in with pt again. She was just seeing OT, said that Dr. Villareal had told her she could go home before the above discussion and thus she had called her friend who was on her way from [place] to pick her up. CINDY Bliss reports there is no d/c order yet in the chart. Dr. Villareal is updated re all this. P: home when Dr. Villareal deems stable for same. Pt is currently on toilet passing more stool, now a more liquid consistancy, per CINDY Bliss. Original Note: Addendum entered by Lucy Arias LPN 08/28/18 11:11: Of note: [facility] states that pt now does not want to consider a snf setting and plans home. Original Note: DCP: continued: case received, EMR reviewed. Note that pt is now s/p ventral hernia repair with mesh. She has not yet had BM. Surgeon was just here to see pt and he has now conferred with hospitalist Dr. Villareal. Pt will not d/c to home until her bowels are functional. Checked in with pt. She confirms that her d/c plan remains home. She is considering how to manage her shopping etc when she first goes home. Says she will be discussing this with friends. She will also have transport home. Pt notes I just want to get back to my old routine as soon as possible.
[2018-08-28 13:00] VITALS: BP 101/43; PULSE 98; RESP 18; TEMP 36.8
--- NOTE | 2018-08-28 13:37 | PN_ITS ---
DATE OF SERVICE: 08/28/2018 Patient's now 2 days post laparotomy, repair of incarcerated ventral hernia for small-bowel obstruction. Subjectively, she feels well. She has no nausea or vomiting, and she is tolerating a mechanical soft diet. She's not had a BM yet. She is passing some flatus. On exam, she's afebrile. She has a soft abdomen. Incision looks good with no erythema or induration. No sign of infection. Her ileal conduit urostomy is producing copious clear urine. Her hemoglobin today 13, white count 7600. My plan is that I would like to see her have a bowel movement before she goes home given that she came in for treatment of a bowel obstruction, so we will give her dose of MiraLAX today and keep ambulating her in the hallways. I suspect she should be able to go home soon. She does live alone and has no help, so I am not anxious to send her home early. Dayana Wynne - Yari/ doc#: [id number]/job#: [id number] dd: 08/28/2018 10:22:00 dt: 08/28/2018 13:29:00 DICTATING /COPIES TO: Presley Preutt MD COPIES MNE: AURELIO
[2018-08-28] MEDS: BISACODYL 10 MG SUPP PR (13:39)
--- NOTE | 2018-08-28 14:20 | PC.NURSE ---
1400 Pt had a sml hard formed BM in toilet.
[2018-08-28 16:00] VITALS: BP 142/71; PULSE 96; RESP 20; TEMP 36.6
--- NOTE | 2018-08-28 16:10 | OT.IP.EVAL ---
Current Diagnoses Pneumonia, unspecified organism (08/25/18) Unspecified intestinal obstruction, unspecified as to partial versus complete obstruction (08/25/18) Acute kidney failure, unspecified (08/25/18) Nausea with vomiting, unspecified (08/25/18) Personal history of malignant neoplasm of bladder (08/25/18) Presence of other vascular implants and grafts (08/25/18) Other specified postprocedural states (08/25/18) Surgery Performed Operation Date: 08/26/18 17:30 Actual Procedures p Hernia Repair Ventral - Presley Pruett MD Past Medical History (Last Reviewed 08/25/18 @ 10:20 by Shahida Martin MD) Bladder malignancy (Acute ~02/21/09) Cancer of left breast (Acute) Deep vein blood clot of left lower extremity (Acute) Deep vein blood clot of left lower extremity (Acute) Deep vein blood clot of right lower extremity (Acute ~11/23/94) Shingles (Acute ~11/23/03) Varicose veins of bilateral lower extremities with pain (Acute) History of hysterectomy (Chronic) Tonsillectomy planned (Chronic) Surgical History (Last Updated 08/25/18 @ 10:21 by Shahida Martin MD) History of hysterectomy for indication other than malignancy (Acute) History of urostomy (Acute) S/P vascular bypass (Chronic ~11/23/89) Occupational Therapy Inpatient Evaluation/Re-Eval M1 PT/OT-IP Prior Functional Status Start: 08/27/18 16:54 Freq: NEEDED Status: Active Protocol: Document 08/27/18 16:10 [facility] (Rec: 08/27/18 17:16 AB [id number]) Medical Review Prior Functional Status Medical History Reviewed Yes Communication able to make needs known Mobility and Gait pt stated that she is independent with all mobilities and ambulation without AD Social History Household Members none Living Arrangements House Number of Floors (Floors) One Floor Number of Stairs To Enter/Railing? has 3 steps to enter with bilateral rails Home Environment Standard Height Toilet Walk in Shower Home Equipment Shower Seat without Backrest Employment Status Retired Additional Social History Comment pt stated that she has a high millie size bed and has a 3 tier step stool/ladder that she uses to get into the bed and also uses that same step to pull on to assist her with bed mobility. pt stated that she has friends /neighbors that she can call for assistance. M1 PT/OT-IP Prior Functional Status Start: 08/28/18 15:52 Freq: NEEDED Status: Active Protocol: Document 08/28/18 15:52 [facility] (Rec: 08/28/18 16:10 [facility] [email or web address]) Medical Review Prior Functional Status Medical History Reviewed Yes Communication able to make needs known Mobility and Gait pt stated that she is independent with all mobilities and ambulation without AD Activities of Daily Living and IADL's Pt states independent. Social History Household Members none Living Arrangements House Number of Floors (Floors) One Floor Number of Stairs To Enter/Railing? has 3 steps to enter with bilateral rails Home Environment Standard Height Toilet Walk in Shower Home Equipment Shower Seat without Backrest Employment Status Retired Additional Social History Comment pt stated that she has a high millie size bed and has a 3 tier step stool/ladder that she uses to get into the bed and also uses that same step to pull on to assist her with bed mobility. pt stated that she has friends /neighbors that she can call for assistance. M2 OT-IP Current Condition Start: 08/28/18 15:52 Freq: Status: Active Protocol: Document 08/28/18 15:52 [facility] (Rec: 08/28/18 16:10 [facility] [email or web address]) Occupational Therapy Current Condition Current Condition Evaluation Date 08/28/18 Treatment Diagnosis s/p ventral hernia repair, weakness Diagnosis Onset Date 08/25/18 Post Operative Precautions Abdominal Surgery Precautions Log Roll Lifting Restrictions Gait Belt above Incisional Area M3 OT- IP Subjective and Pain Start: 08/28/18 15:52 Freq: Status: Active Protocol: Document 08/28/18 15:52 [facility] (Rec: 08/28/18 16:10 [facility] [email or web address]) OT- Subjective Occupational Therapy Visit Type Type Initial Evaluation Visit Start Time 15:12 Visit Stop Time 15:32 Total Visit Minutes 20 Occupational Therapy Visit Comments Patient/Caregiver Goals Pt wanting to go home. OT Pain Assessment Pain When Pain Assessed At Rest Pain Present Pain Present Denied Pain M4 OT- IP ADL's Start: 08/28/18 15:52 Freq: Status: Active Protocol: Document 08/28/18 15:52 [facility] (Rec: 08/28/18 16:10 [facility] [email or web address]) OT ADL-Dressing General Eval Lower Body Dressing Ability Independent Comments OT Dressing Comments Pt able to independently basil/ doff slippers while in recliner. Pt states mainly just wears gowns at home and loose pants. OT ADL-Toileting General Evaluation Toileting Ability Independent Comments OT Toileting Comments Pt able to do all toileting needs independently. 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 M6 OT- IP Functional Cognition Start: 08/28/18 15:52 Freq: Status: Active Protocol: Document 08/28/18 15:52 [facility] (Rec: 08/28/18 16:10 [facility] [email or web address]) Cognitive Factors Limiting Selfcare Function Cognitive Ability Level of Alertness Alert Patient Orientation Name Place Situation Attention Span Ability Capable of Focused Attention Capable of Sustained Attention Ability to Follow Commands Able to Follow Multi-Step Commands Memory Description No Deficits Noted Cognitive Comments Cognitive Assessment Comments Pt intact fro all functional cognition. M7 OT- IP Mobility and Balance Start: 08/28/18 15:52 Freq: Status: Active Protocol: Document 08/28/18 15:52 [facility] (Rec: 08/28/18 16:10 [facility] [email or web address]) OT-Transfer Assessment Sit to and From Stand Sit to and from Stand Independent Transfers Transfer Ability Independent Technique Transfer Destination Chair Toilet Devices Transfer Assistive Devices None OT- Balance Assessment Sitting Balance and Reactions Static Sitting Balance Ability Normal Dynamic Sitting Balance Ability Normal Standing Balance and Reactions Static Standing Balance Ability Normal Dynamic Standing Balance Ability Good M8 OT- IP Objective Assessments Start: 08/28/18 15:52 Freq: Status: Active Protocol: Document 08/28/18 15:52 [facility] (Rec: 08/28/18 16:10 [facility] [email or web address]) OT Gross Range of Motion Upper Extremity Range of Motion ROM Impairments WFL for ADL needs. M9 OT- IP Assessment and Plan Start: 08/28/18 15:52 Freq: Status: Active Protocol: Document 08/28/18 15:52 [facility] (Rec: 08/28/18 16:10 [facility] [id number]) OT Summary Assessment and Plan Potential Rehabilitation Potential Excellent Analytic Complexity at Evaluation Low Summary Progress Towards Goals Safe For Discharge Assessment Summary Pt safe for discharge when medically stable. Pt able to do all ADl's and has supportive friends to assist her at home. Therefore, OT eval only and discharge pt from OT services. Frequency of Treatment Frequency Of Treatment Once a Day Treatment Plan OT Treatment Plan Discharge Planning Discharge Recommendations OT Discharge Recommendations Home with Assistance
--- NOTE | 2018-08-28 16:21 | P.DS_ITS ---
Addendum entered and electronically signed by Shahida Martin MD 11/11/18 17:30 : Patient was discharged Original Note: History of Present Illness <Vicente Villareal MD - Last Filed: 08/28/18 16:23> Date Patient Seen: 08/28/18 Time Patient Seen: 12:18 Chief complaint: Pneumonia, UTI Narrative: Patient is a pleasant 82 years of age female who lives alone and presents to [facility] ER complaining of nausea vomiting abdominal pain and diarrhea. Patient has prior history of bladder cancer with urostomy. Urinalysis was initially positive for UTI. Patient was admitted to the hospital with these symptoms and findings as described. Discharge Providers <Vicente Villareal MD - Last Filed: 08/28/18 16:23> Date of admission: 08/25/18 05:41 Consults: 08/27/18 10:04 Consult to Physical Therapy Evaluate & Treat Comment: ambulate in halls Physician Instructions: Evaluate and Treat 08/27/18 10:27 Consult to Occupational Therapy Evaluate & Treat Comment: Physician Instructions: Evaluate and treat Discharge provider: Vicente Villareal MD <Shahida Martin MD - Last Filed: 11/11/18 17:29> Discharge Date: 08/28/18 Summary <Vicente Villareal MD - Last Filed: 08/28/18 16:23> Discharge Diagnosis: Incarcerated ventral hernia involving small bowel Patient underwent surgery by general surgeon on August 26 Discomfort noted at the incision line but pain appeared tolerable Diet being advanced per surgeon's instruction Physical therapy cleared the patient as safe for discharge to home setting in a.m. August 28 Patient had several bowel movements before discharge as requested by general surgeon Follow-up with the general surgeon per his instruction Acute renal failure: Suspected due to the dehydration state on admission. Modest improvement in his serum creatinine during hospital course noted Serum creatinine on day of discharge 1.2. History of bladder cancer with urostomy Resume usual care of the urostomy upon discharge Hospital Course: During hospital course patient was found to have a incarcerated small bowel related to a hernia. General surgeon did surgical procedure to close up hernia. Patient was advanced in her diet as directed by the general surgeon. Patient tolerated the diet well. Physical therapy noted in a.m. on August 23 the patient was safe to discharge home without home health needed. Patient had not had a bowel movement as yet so the surgeon requested bowel movement from patient before she could be discharged. Patient had several bowel movements on day of discharge August 28. Will provide analgesic therapy and antiemetic therapy and bowel regimen for the patient as needed. Follow with the general surgeon after discharge per his instruction Status at Discharge Cognitive/behavioral status at discharge: Well oriented no apparent distress mildly in good spirits anxious for discharge Functional status at discharge: independent ambulation Time Spent with Patient Greater than 30 minutes (40 min discharge) Exam <Vicente Villareal MD - Last Filed: 08/28/18 16:23> Vital Signs (past 8 hours): - 08/28/18 13:00 08/28/18 16:00 Temperature 98.2 F 97.8 F Pulse Rate 98 H 96 H Respiratory Rate 18 20 Blood Pressure 101/43 L 142/71 H Fraction of Inspired Oxygen 21 Oxygen Delivery Method Room Air Oxygen Flow Rate 0 Objective <Vicente Villareal MD - Last Filed: 08/28/18 16:23> Labs Result Diagrams: 08/28/18 05:35 08/28/18 05:35 Labs: Laboratory Results - last 24 hr 08/27/18 08/28/18 08/28/18 16:19 05:35 05:35 WBC 7.6 RBC 4.37 Hgb 13.1 Hct 39.7 MCV 90.7 MCH 29.9 MCHC 32.9 RDW 14.4 Plt Count 195 Neut % (Auto) 70.6 Lymph % (Auto) 10.2 L [place] % (Auto) 14.9 H Eos % (Auto) 3.3 Baso % (Auto) 1.0 Neut # (Auto) 5400 Sodium 139 Potassium 3.6 Chloride 105 Carbon Dioxide 26 BUN 13 Creatinine 1.20 H Estimated GFR 43.2 L BUN/Creatinine Ratio 10.8 Glucose 111 H Calcium 8.6 C-Reactive Protein 13.9 H Procalcitonin 0.09 Discharge Plan Discharge Plan Patient Disposition: Home Discharge comment: PATIENT ADVISED TO SEE THE GENERAL SURGEON IN OUTPATIENT SETTING PER HIS INSTRUCTION Discharge Med Rec/Prescriptions Prescriptions: New hydrocodone-acetaminophen [[place]] 5-325 mg tablet 1 tab PO Q4H PRN (Reason: pain) Qty: 30 RF: 0 docusate sodium [Colace] 100 mg capsule 100 mg PO .bid prn Qty: 20 RF: 0 polyethylene glycol 3350 [Miralax] 17 gram powder in packet 17 gram PO .bid prn Qty: 20 RF: 0 ondansetron [Zofran ODT] 4 mg tablet,disintegrating 4 mg PO QID PRN (Reason: nausea and vomiting) Qty: 10 RF: 0 Continue atorvastatin 40 mg tablet 40 mg PO DAILY RF: 0 Follow up/Referrals: Presley Pruett MD [Physician] - 1 Week (Call [facility] at [phone] this Thursday, to schedule an appointment of or Thursday this week for staple removal.) Provider Discharge Instructions Diet: Diet as Tolerated Activity: No heavy lifting over 20lbs. Skin/Wound/Dressing Care Skin care: May shower every day to keep wound clean. Report to your healthcare provider any signs of infection, such as:: chills, fever, increased pain and unusual drainage Visit Report/Discharge Packet Instructions: Hernia Repair Visit Report Forms: Stroke Signs & Symptoms Discharge Data Attending Provider: Mateusz Mckeon Admit Date/Time: 08/25/18 05:41 Discharges patient from system. Discharge Date/Time: 08/28/18 17:30 Quality <Vicente Villareal MD - Last Filed: 08/28/18 16:23> VTE Deep Vein Thrombosis/Pulmonary Embolism Present on Admission: No
--- NOTE | 2018-08-28 18:33 | PC.NURSE ---
Discharge Note Pt A&O, VSS, 94% on RA. No complaints of pain or discomfort. This RN went over discharge information and new prescriptions with pt and friend, no questions or concerns. All belongings, discharge packet and prescriptions given to pt. Pt wheeled down to personal vehicle via wheelchair at 1730.
== END 2018-08-28 17:30 | disposition home or self-care (01) | DRG 336 ==
PROVIDERS: Internal Medicine; Surgery; Admitting Provider Internal Medicine; Visit Provider Internal Medicine
PROC: 0WUF0JZ Supplement Abdominal Wall with Synthetic Substitute, Open Approach (ICD-10-PCS; principal; 2018-08-26 17:30)
DX: K43.6 Other and unspecified ventral hernia with obstruction, without gangrene (principal); N17.9 Acute kidney failure, unspecified; Z87.891 Personal history of nicotine dependence; E86.0 Dehydration
CPT/HCPCS: 36415; 49560; 49568; 71046; 74019; 74177; 80048; 80053; 81001; 84145; 85025; 86140; 87086; 94760; 97116; 97161; 97165; C1781; J0330; J0696; J1170; J1650; J2060; J2250; J2405; J2704; J3010; Q9967